=== PATIENT | female | born 1960 | race Caucasian/White ===

== ENCOUNTER → 2025-07-17 | Outpatient (CLI) | payer MEDICARE ==
[~2025-07-17] MED LIST: ALPR1 PO; CARI350 PO; CONEST.625 PO; CONEST1.25 PO; FURO20 PO; GABA300 PO; GABA600 PO; HYDACE7.5 PO; LISHYD2025 PO; LISI20 PO; LISI5 PO; MELO7.5 PO; MIRT15 PO; MIRT30 PO; OXYACE5T PO; OXYC10ER PO; OXYC10TA19 PO; OXYC15ER PO; POTCHL20ER PO; PROM25 PO; SODCHL1 PO; TEMA30 PO; ZOLP10 PO; [UNRECOGNIZED DRUG - CODE] PO
[2025-07-17 16:09] LABS: BASOPHILS ABSOLUTE AUTO 0.10 K/mm3 (0.00-0.23); BASOPHILS PERCENT AUTO 1 % (0-2); EOSINOPHILS ABSOLUTE AUTO 0.10 K/mm3 (0.00-0.68); EOSINOPHILS PERCENT AUTO 1 % (0-6); Hematocrit 39.0 % (33.0-51.0); Hemoglobin 12.6 g/dL (11.5-16.0); IMMATURE GRAN ABSOLUTE AUTO 0.03 K/mm3 (0.00-0.10); IMMATURE GRAN PERCENT AUTO 0 % (0-1); LYMPHOCYTES ABSOLUTE AUTO 1.85 K/mm3 (0.84-5.20); LYMPHOCYTES PERCENT AUTO 26 % (21-46); MONOCYTES ABSOLUTE AUTO 0.52 K/mm3 (0.16-1.47); MONOCYTES PERCENT AUTO 7 % (4-13); Mean Corpuscular HGB Conc 32.3 g/dL (31.5-36.5); Mean Corpuscular Volume 92 fL (80-100); NEUTROPHILS ABSOLUTE AUTO 4.60 K/mm3 (1.96-9.15); NEUTROPHILS PERCENT AUTO 64 % (41-73); NRBC ABSOLUTE 0.00 K/mm3 (0.00-0.02); NRBC Auto 0.0 /100 WBC (0.0-0.2); Platelet Count 324 K/mm3 (150-400); RDW Coefficient Variation 16.2 % (11.7-14.2); RDW Standard Deviation 55.6 fL (35.1-46.3)
== END ==
LOC: LAB SHORT 15:06 → LAB 15:06
PROVIDERS: Internal Medicine Hematology & Oncology
DX: E61.1 Iron deficiency (principal)
CPT/HCPCS: 85025

== ENCOUNTER → 2025-09-16 | Outpatient (CLI) | payer MEDICARE, OTHER ==
[2025-09-16 16:40] LABS: Ferritin, Serum 94.0 ng/mL (8-252); Total Iron Binding Capacity 354.0 ug/dL (250-450)
== END ==
LOC: LAB 10:03 → LAB SHORT 10:03
PROVIDERS: Internal Medicine Hematology & Oncology
DX: E61.1 Iron deficiency (principal); E53.8 Deficiency of other specified B group vitamins
CPT/HCPCS: 82607; 82728; 83540; 83550